=== PATIENT | female | born 1975 | race Caucasian/White ===

== ENCOUNTER 2016-04-01 20:43 | Emergency (ER) | payer SELFPAY ==
[~2016-04-01] VITALS: Ht 172.7 cm; Wt 130.8 kg
[2016-04-01 20:46] VITALS: TEMP 36.9; Ht 172.7 cm; Wt 130.8 kg
[2016-04-01] MEDS ORDERED: PENI-82 PO (21:34)
[2016-04-01 21:38] VITALS: BP 127/87; PULSE 67; O2SAT 97
[2016-04-01] MEDS ORDERED: TRAMADOL HCL 50 MG HOME PACK PO ONE (21:45)
[2016-04-01] MEDS ORDERED: PENICILLIN HOME PACK 500MG (4 DOSES)BTL PO ONE (21:45)
--- NOTE | 2016-04-02 01:01 | EMERGENCY ROOM VISIT NOTE ---
ED Visit Note First contact with patient: 21:24 CHIEF COMPLAINT: Toothache HISTORY OF PRESENT ILLNESS: This 40-year-old female patient presented to the emergency department with a progressive toothache for past 2-3 days. The patient believes it is coming from a left upper tooth. The pain is now steady and severe and radiates to the face. The patient does not a dentist appointment set up because she does not have insurance. They rate their pain a 7/10 and the ibuprofen and Tylenol they have been taking has not relieved the pain. Denies facial swelling or fever. The patient denies any discharge from the mouth. REVIEW OF SYSTEMS: A 6 system review of systems was completed with positives and pertinent negatives listed in the HPI. ALLERGIES: NKDA MEDICATIONS: No chronic medications PMH: Otherwise healthy SOCIAL HISTORY: Employed and lives locally PHYSICAL EXAM: Vitals are noted on the nurse's note and reviewed by myself. Vital signs stable. GENERAL: White female, in no acute distress, nondiaphoretic, well-developed well -nourished. Mouth: The left upper #10 tooth is very carious and the gum is swollen and tender around it, without any discharge or signs of an abscess. The remainder of the pharynx and tonsils are without erythema, edema, or exudate. The airway is patent. There is no facial swelling, cervical or submandibular lymphadenopathy. The patient appears uncomfortable and in pain. The patient has overall poor dental hygiene. EARS: External auditory canals clear, tympanic membranes pearly dugan without erythema or effusion bilaterally. HEART: Regular rate and rhythm without murmur gallop or rub LUNG: Clear to auscultation bilateral ED COURSE: Physical exam and history were performed. Nursing notes and EMR were reviewed. The patient has very poor dentition and is now having dental pain. She hasn't seen in the emergency Department previously for dental pain, however it has not been for several years. I will give her a home pack of tramadol as well as a course of Pen-Vee K. The patient really needs to follow with a dentist for definitive care. She was otherwise invited back to the ER with any new, worsening, or concerning symptoms. Current/Historical Medications Scheduled Penicillin V Potassium (Veetids), 500 MG PO QID Allergies Coded Allergies: No Known Allergies (Verified Allergy, Unknown, 11/06/02) Vital Signs Date Time Temp Pulse Resp B/P Pulse Ox O2 Delivery O2 Flow Rate FiO2 04/01/16 21:38 67 18 127/87 97 Room Air 04/01/16 20:46 36.9 70 18 134/86 98 Room Air Departure Information Impression Primary Impression: Pain, dental Dispostion Home / Self-Care Condition GOOD Prescriptions Penicillin V Potassium (Veetids) 500 Mg Tab 500 MG PO QID for 10 Days, #40 TAB Prov: Alex Michael PA-C 04/01/16 Forms HOME CARE DOCUMENTATION FORM, IMPORTANT VISIT INFORMATION Patient Instructions My [facility] [address] Additional Instructions You were seen and evaluated today on an emergency basis only. This is not a substitute for, or an effort to provide, complete comprehensive medical care. It is not possible to recognize and treat all injuries or illnesses in a single emergency department visit. For this reason it is recommended that you followup with a dentist as soon as possible for definitive care. For baseline pain relief you may alternate ibuprofen and acetaminophen every 4 hours for pain control. Take 600 mg ibuprofen (Advil) and then 4 hours later take 1000 mg acetaminophen (Tylenol). Do not take more than 3000 mg acetaminophen in a single day. Take tramadol 50 mg (homepack) every 8 hours as needed for pain control. Do not drink or drive on this medication. Take Pen-Vee K 500 mg 4 times daily for the next 10 days You are welcome to return to the emergency department anytime with new, worsening, or concerning symptoms.
== END 2016-04-01 21:41 | disposition home or self-care (01) ==
LOC: C.EDB 20:44 → C.EDD 21:41
DX: K08.89 Other specified disorders of teeth and supporting structures (principal)

== ENCOUNTER 2016-05-27 07:53 | Emergency (ER) | payer SELFPAY ==
[~2016-05-27] VITALS: Ht 172.7 cm; Wt 130.5 kg
[2016-05-27 07:56] VITALS: BP 141/94; PULSE 75; TEMP 36.7; O2SAT 96; Ht 172.7 cm; Wt 130.5 kg
[2016-05-27] MEDS ORDERED: AMOXICILLIN 250 MG CAP PO STA (08:05)
[2016-05-27] MEDS ORDERED: HYDROCODONE/HOMATROPINE SYRUP 5MG/1.5MG 5ML UDP PO STA (08:05)
[2016-05-27] MEDS ORDERED: ACETAMINOPHEN 500 MG TAB PO STA (08:05)
[2016-05-27] MEDS ORDERED: HYDR5SYP11 PO (08:09)
[2016-05-27] MEDS ORDERED: AMOX500C3 PO (08:09)
--- NOTE | 2016-05-27 08:59 | EMERGENCY ROOM VISIT NOTE ---
History Report prepared by Hiram: Jessica Monroe Under the Supervision of: Dr. Geo Jarvis M.D. First contact with patient: 07:59 Chief Complaint: EAR PAIN Stated Complaint: RIGHT EAR EAR ACHE History of Present Illness The patient is a 40 year old female who presents to the Emergency Room with complaints of persistent right ear pain starting last night. She rates her discomfort as an 8/10 in severity. She has had a sore throat and congestion starting 4 days ago. She was taking cold medicine to try to relieve her symptoms. Last night she started getting right ear pain. She had a history of ear infections when she was younger. She denies any tobacco use. Source of History: patient Onset: last night Position: ear (right) Symptom Intensity: 8/10 Quality: other (pain) Timing: other (persistent) Associated Symptoms: + sorethroat Note: Pt reports congestion. Review of Systems See HPI for pertinent positives & negatives. A total of 10 systems reviewed and were otherwise negative. Past Medical & Surgical Medical Problems: (1) Hypertension Surgical Problems: (1) History of hysterectomy (2) S/P cholecystectomy Family History Cancer Diabetes mellitus Gallbladder disease Heart disease Hypertension Social History Smoking Status: Never Smoker Marital Status: single Housing Status: lives with family Occupation Status: employed Current/Historical Medications Scheduled Amoxicillin (Amoxil), 500 MG PO TID Scheduled PRN Hydrocodone W/ Homatropine (Hycodan 5/1.5MG 5 Ml), 5 ML PO HS PRN for Pain or Fever Allergies Coded Allergies: No Known Allergies (Verified , 05/27/16) Physical Exam Vital Signs Date Time Temp Pulse Resp B/P Pulse Ox O2 Delivery O2 Flow Rate FiO2 05/27/16 07:56 36.7 75 18 141/94 96 Room Air Physical Exam GENERAL: Patient is a healthy-appearing well-nourished HEAD: Normocephalic atraumatic. Bulging right TM. No evidence of meningitis or encephalitis. EYES: Ocular movements intact pupils equal and react to light OROPHARYNX mucous membranes are moist no exudates present no erythema or edema present NECK: Supple no nuchal rigidity CHEST: Good equal expansion LUNGS: Clear and equal to auscultation CARDIAC: Normal S1 and S2 ABDOMEN: Soft nontender no guarding BACK: No CVA tenderness EXTREMITIES: No pain upon palpation normal muscle strength in all groups no clubbing cyanosis or edema NEURO: Patient is following commands is answering questions appropriately. Alert and oriented x3 Cranial Nerves 2-12 grossly intact Medical Decision & Procedures Medications Administered Medications (Trade) Dose Ordered Sig/Chavo Route Start Time Stop Time Status Last Admin Dose Admin Amoxicillin (Amoxil Cap) 500 mg NOW STAT PO 05/27/16 08:05 05/27/16 08:06 DC 05/27/16 08:20 500 MG Hydrocodone Bit/ Homatropine Methylb (Hycodan Syrup) 5 ml NOW STAT PO 05/27/16 08:05 05/27/16 08:06 DC 05/27/16 08:20 5 ML Acetaminophen (Tylenol Tab) 1,000 mg NOW STAT PO 05/27/16 08:05 05/27/16 08:06 DC 05/27/16 08:21 1,000 MG ED Course 0802: Past medical records reviewed. The patient was evaluated in room A10. A complete history and physical examination was performed. 0805: Acetaminophen 1000 mg PO, Hycodan Syrup 5 ml PO, Amoxicillin 500 mg PO. 0810: Upon reexamination the patient is resting comfortably. I discussed results and treatment plan with the patient. She verbalizes agreement and understanding. The patient is ready for discharge. Medical Decision This is a 40-year-old female who presents emergency department complaining of right ear pain. The patient has no evidence of meningitis encephalitis on examination. She appears to have otitis media on examination therefore the patient was started on amoxicillin. I do believe that the patient as well as to be discharged home for follow-up with a primary care physician. Patient was in agreement with the treatment plan. Impression Primary Impression: Otitis media Scribe Attestation The scribe's documentation has been prepared under my direction and personally reviewed by me in its entirety. I confirm that the note above accurately reflects all work, treatment, procedures, and medical decision making performed by me. Departure Information Dispostion Home / Self-Care Prescriptions Hydrocodone W/ Homatropine (HYCODAN 5/1.5MG 5 ML) 1 Syp Syp 5 ML PO HS Y for Pain or Fever, #120 ML Prov: Geo Jarvis MD 05/27/16 Amoxicillin (AMOXIL) 500 Mg Cap 500 MG PO TID, #30 CAP Prov: Geo Jarvis MD 05/27/16 Referrals No Doctor, Assigned (PCP) [facility] Forms HOME CARE DOCUMENTATION FORM, IMPORTANT VISIT INFORMATION, WORK / SCHOOL INSTRUCTIONS Patient Instructions ED Otitis Media Abx Tx, My [facility] Additional Instructions You received narcotic or benzodiazepene medication while in the emergency room today. Do not drive, operate heavy machinery, or drink alcohol under the influence of this medication. Take 600 mg Ibuprofen every 6 hours Take Hycodan for breakthrough pain You have been examined and treated today on an emergency basis only. This is not a substitute for, or an effort to provide, complete comprehensive medical care. It is impossible to recognize and treat all injuries or illnesses in a single emergency department visit. It is therefore important that you follow up closely with your PCP. Call as soon as possible for an appointment. Thank you for your time and consideration. I look forward to speaking with you again soon. Please don't hesitate to call us if you have any questions. Problem Qualifiers Primary Impression: Otitis media Otitis media type: unspecified Laterality: right Chronicity: unspecified Qualified Codes: H66.91 - Otitis media, unspecified, right ear
== END 2016-05-27 08:27 | disposition home or self-care (01) ==
LOC: C.EDB 07:54 → C.EDA 08:27
DX: H66.91 Otitis media, unspecified, right ear (principal); I10 Essential (primary) hypertension; Z80.9 Family history of malignant neoplasm, unspecified; Z83.3 Family history of diabetes mellitus; Z83.79 Family history of other diseases of the digestive system; Z82.49 Family history of ischemic heart disease and other diseases of the circulatory system